=== PATIENT | male | born 1975 | race Caucasian/White ===

== ENCOUNTER 2018-01-03 07:46 | Emergency (ER) | payer MEDICAID ==
[~2018-01-03] VITALS: Ht 167.6 cm; Wt 88.0 kg
[2018-01-03 07:53] VITALS: Ht 167.6 cm; Wt 88.0 kg
[2018-01-03 08:26] VITALS: BP 148/99
== END 2018-01-03 08:26 | disposition home or self-care (01) ==
LOC: ED 07:46
DX: K40.90 Unilateral inguinal hernia, without obstruction or gangrene, not specified as recurrent (principal)